=== PATIENT | female | born 1940 | race African-American/Black ===

== ENCOUNTER 2024-03-12 11:52 | Emergency (ER) | payer MEDICARE ==
[~2024-03-12] VITALS: Ht 167.6 cm; Wt 82.0 kg
[2024-03-12 11:56] VITALS: O2SAT 97
[2024-03-12 16:11] VITALS: BP 162/69; PULSE 59; RESP 18; TEMP 98.2
== END 2024-03-12 16:18 | disposition home or self-care (01) ==
LOC: ER 12:43
DX: S01.01XA Laceration without foreign body of scalp, initial encounter (principal); E78.00 Pure hypercholesterolemia, unspecified; I10 Essential (primary) hypertension; R51.9 Headache, unspecified; Z86.73 Personal history of transient ischemic attack (TIA), and cerebral infarction without residual deficits; Z88.8 Allergy status to other drugs, medicaments and biological substances; W18.39XA Other fall on same level, initial encounter; Y93.89 Activity, other specified; Y92.89 Other specified places as the place of occurrence of the external cause; Y99.8 Other external cause status
CPT/HCPCS: 12001; 99284

== ENCOUNTER 2025-05-19 15:37 | Emergency (ER) | payer MEDICARE ==
[~2025-05-19] VITALS: Ht 170.2 cm; Wt 98.0 kg
[2025-05-19 16:50] LABS: BASOPHILS % 0.7 % (0.0-2.0); EOSINOPHILS % 0.5 % (0.0-5.0); HEMATOCRIT. 42.4 % (36.0-48.0); HEMOGLOBIN. 14.4 g/dL (12.0-16.0); LYMPHOCYTES % 18.4 % (20.0-50.0); MEAN CORPUSCULAR HEMOGLOBIN 31.4 pg (28.0-32.0); MEAN CORPUSCULAR HGB CONC 33.9 g/dL (31.0-37.0); MEAN CORPUSCULAR VOLUME 92.6 fL (81.0-99.0); MEAN PLATELET VOLUME 8.3 fl (7.4-10.4); MONOCYTES % 5.8 % (2.0-8.0); NEUTROPHILS % 74.6 % (40.0-76.0); PLATELET 239 x1000/uL (130-400); RED BLOOD CELL COUNT 4.58 mill/uL (4.2-5.4); RED CELL DISTRIBUTION WIDTH 14.1 % (11.6-14.6); WHITE BLOOD COUNT 5.7 x1000/uL (4.5-11.0)
[2025-05-19 16:59] LABS: CARBON DIOXIDE 23 mEq/L (21-32); CHLORIDE 108 mEq/L (98-107); POTASSIUM 3.9 mEq/L (3.5-5.1); SODIUM 142 mEq/L (136-145)
[2025-05-19 17:00] LABS: CALCIUM 9.7 mg/dL (8.7-10.4)
[2025-05-19 17:05] LABS: CREATININE 1.1 mg/dL (0.6-1.0); GLUCOSE 155 mg/dL (70-105); UREA NITROGEN BLOOD 14 mg/dL (9-23)
[2025-05-19 17:06] LABS: TROPONIN I HIGH SENSITIVITY 5 ng/L (3.0-34)
[2025-05-19] MEDS: ALBUTEROL (0.083%) 2.5MG/3ML NEB HHN ONE (17:46)
[2025-05-19 17:55] VITALS: PULSE 75; RESP 18; O2SAT 94
[2025-05-19] MEDS ORDERED: AMOX1TAB16 MT (18:47)
[2025-05-19] MEDS ORDERED: AZIT250T12 MT (18:47)
[2025-05-19] MEDS ORDERED: GUAI-450 MT (18:47)
[2025-05-19 19:07] VITALS: BP 119/69; PULSE 72; RESP 16; TEMP 36.4; O2SAT 95
== END 2025-05-19 19:10 | disposition home or self-care (01) ==
LOC: ER 15:37
DX: J18.9 Pneumonia, unspecified organism (principal); J45.909 Unspecified asthma, uncomplicated; E78.00 Pure hypercholesterolemia, unspecified; I11.0 Hypertensive heart disease with heart failure; I50.9 Heart failure, unspecified; Z20.822 Contact with and (suspected) exposure to COVID-19
CPT/HCPCS: 36415; 71045; 80048; 83880; 84484; 85025; 93005; 94070; 94640; 99283